=== PATIENT | female | born 1985 | race Caucasian/White ===

== ENCOUNTER → 2017-11-12 | Outpatient (CLI) | payer OTHER ==
[~2017-11-12] MED LIST: FLUT0.15; MTR600X PO; OXYC5TAB PO; PRENTAB26 PO
--- NOTE | 2017-11-12 09:26 | DIAGNOSTIC IMAGING REPORT ---
CHEST 2 VIEWS ROUTINE CLINICAL HISTORY: 32 years-old Female presenting with COUGH, FEVER. TECHNIQUE: PA and lateral views of the chest were obtained. COMPARISON: None. FINDINGS: Cardiomediastinal silhouette normal. Left retrocardiac paraspinal opacity in the left lower lobe. No other focal infiltrate. No pleural effusion or pneumothorax. Osseous structures normal. Upper abdomen normal. IMPRESSION: 1. Findings consistent with left lower lobe pneumonia. Electronically signed by: Allan Miller M.D. 11/12/2017 9:25 AM Dictated Date/Time: 11/12/2017 9:23 AM
== END | disposition home or self-care (01) ==
LOC: C.RAD1850 09:12
PROVIDERS: ATTEND Family Medicine
DX: R05 Cough (principal); R50.9 Fever, unspecified

== ENCOUNTER 2021-05-30 05:34 | Inpatient (IN) ==
--- NOTE | 2021-05-12 09:20 | Anesthesiology Consultation ---
Date of Service May 12, 2021 Assessment & Plan (1) Encounter for pre-operative examination: Chart Review Chart Review: entry level electrician initiated -Will leave to anesthesiologist and/or OB discretion if BSG needed DOS (insulin required gestational DM) Per nursing assessment 05/12/2021, patient denies any recent travel. No known Covid infection in the past 90 days. Patient is vaccinated for Covid. No known Covid positive contacts or Covid related symptoms. Preop Covid testing scheduled 05/25/21= will await results History Surgery Operation Date: 05/30/21 07:30 Proposed Procedures p Section in - Vivian EnriqueDO Height/Weight Height: 5 ft 6 in Weight: 88.451 kg Allergies Allergy/AdvReac Type Severity Reaction Status Date / Time wheat Allergy Intermediate Diarrhea Verified 05/12/21 08:01 hazelnut Allergy Unknown allergy Verified 05/12/21 08:01 testing * diarrhea No Known Drug Allergies Allergy Verified 05/12/21 08:01 seasonal allergies Allergy Intermediate Sneezing Uncoded 05/12/21 08:01 Medications Home Medications Medication Instructions Recorded Confirmed Last Taken prenat.vits,roe,lhu-bxmh-ahhki 1 tab PO DAILY 10/18/20 05/12/21 Unknown acetone (urine) test (Ketone Urine #50 ea 11/08/20 05/11/21 Unknown Test) blood sugar diagnostic (Accu-Chek #150 ea 11/08/20 05/11/21 Unknown Guide test strips) blood-glucose meter (Accu-Chek #1 ea 11/08/20 05/11/21 Unknown Guide Glucose Meter) lancets (Accu-Chek Fastclix Lancet #102 ea 11/08/20 05/11/21 Unknown Drum) pen needle, diabetic 32 gauge x #50 ea 11/26/20 05/11/21 Unknown 5/32" (BD Nadiya 2nd Gen Pen Needle) aspirin 81 mg tablet 81 mg PO HS 05/12/21 05/12/21 Unknown insulin NPH isoph U-100 human 100 39 unit SUBCUT HS 05/12/21 05/12/21 Unknown unit/mL (3 mL) subcutaneous pen (Novolin N Flexpen) Past Medical History Medical History Gestational diabetes mellitus (GDM) requiring insulin Past Family History Family History Grandfather (Maternal) Diabetes Brother Allergic rhinitis Mother Eczema Sister Eczema Father Factor 5 Leiden mutation, heterozygous biological father Denies family history of Ovarian cancer Prostate cancer Myocardial infarction Breast cancer Lung cancer Colorectal cancer Stroke Past Surgical History Surgical History S/P section x1 S/P tooth extraction Social History Smoking Status: Never smoker Do You Dip or Chew Tobacco: No Hx Alcohol Use: No Alcohol type: hard liquor Hx Substance Use: No substance use type: does not use
--- NOTE | 2021-05-27 08:28 | History & Physical Report ---
Date of Service May 27, 2021 Assessment & Plan (1) Previous delivery affecting , antepartum: Plan: Plan for repeat section. Consent reviewed in office with patient, [id number]. Questions answered. History of Present Illness Chief Complaint: repeat section Primary Care Provider: Kervin Haley, 36yo with EDC 06/06/21. Scheduled for repeat section. complicated by: Need for Rhogam d/t Rh negative mother Rhogam given 03/15/21 OC Previous --Given consent to review, will likely plan repeat c/s C/S SCHEDULED FOR 05/[address] MATAMOROS NEEDS COVID TEST ON 05/25-ORDERED AMA --Nsts qwk @ 36wks GDM - on insulin *Begin monthly AC Us's @24wks *growth monthly at 28wk *NSTs weekly @ 32, twice weekly @ 36 *deliver by EDC GBS positive Had flu shot 08/2020 Allergies Allergy/AdvReac Type Severity Reaction Status Date / Time wheat Allergy Intermediate Diarrhea Verified 05/25/21 09:14 hazelnut Allergy Unknown allergy Verified 05/25/21 09:14 testing * diarrhea No Known Drug Allergies Allergy Verified 05/25/21 09:14 seasonal allergies Allergy Intermediate Sneezing Uncoded 05/17/21 09:32 Home Medications Medication Instructions Recorded Confirmed Type prenat.vits,roe,ato-urjp-zfoai 1 tab PO DAILY 10/18/20 05/25/21 History acetone (urine) test (Ketone Urine #50 ea 11/08/20 05/25/21 Rx Test) blood sugar diagnostic (Accu-Chek #150 ea 11/08/20 05/25/21 Rx Guide test strips) blood-glucose meter (Accu-Chek #1 ea 11/08/20 05/25/21 Rx Guide Glucose Meter) lancets (Accu-Chek Fastclix Lancet #102 ea 11/08/20 05/25/21 Rx Drum) pen needle, diabetic 32 gauge x #50 ea 11/26/20 05/25/21 Rx 5/32" (BD Nadiya 2nd Gen Pen Needle) aspirin 81 mg tablet 81 mg PO HS 05/12/21 05/25/21 History insulin NPH isoph U-100 human 100 39 unit SUBCUT HS 05/12/21 05/25/21 History unit/mL (3 mL) subcutaneous pen (Novolin N Flexpen) Patient History Medical History Gestational diabetes mellitus (GDM) requiring insulin Surgical History S/P section x1 S/P tooth extraction Family History Grandfather (Maternal) Diabetes Brother Allergic rhinitis Mother Eczema Sister Eczema Father Factor 5 Leiden mutation, heterozygous biological father Denies family history of Ovarian cancer Prostate cancer Myocardial infarction Breast cancer Lung cancer Colorectal cancer Stroke Social History Smoking Status: Never smoker Second Hand Exposure: No; Hx Alcohol Use: No Hx Substance Use: No Preferred Language: Slovak Communication Ability: Effective Visual Impairment: Limited Hearing Ability: Normal Professor Of Education Required: No Beliefs That Will Affect Care: None marital status: marital status details: Theodore Hunt (36) [phone] Current Living Situation: Spouse and Family Current Living Situation Comment: lives with spouse, daughter, cats-spouse changing litter current occupational status: employed current occupation: [employer] How many Children do You have: 1 Feels Safe at Home: Yes Childhood Exposure to Second-Hand Smoke: Yes (mother) caffeine: Yes Dental Care, Regularly: Yes Physical Activity Frequency: 3-4 Times per Week Physical Activity Frequency Comment: run Seatbelt Use: always Sunscreen Use: Yes Do you think of yourself as: straight/heterosexual Assistive Devices: Contacts and Glasses Review of Systems All systems reviewed & are unremarkable except as noted in HPI & below Physical Exam Constitutional: WD/WN, vitals as above Respiratory: normal respiratory effort, lungs clear to auscultation no respiratory distress Cardiovascular: Rate/Rhythm: regular rate and regular rhythm Gastrointestinal (Abdomen): Inspection/Auscultation: abdomen normal to inspection Percussion/Palpation: abdomen soft; abdomen nontender Gravid. No s/s chorio or abruption. Skin: no rashes, warm and dry Psychiatric: A+Ox3, euthymic affect Coding Level of Care Code None Diagnoses Previous delivery affecting , antepartum O34.219
[2021-05-30] MEDS ORDERED: CITRIC ACID/SODIUM CITRATE 15 ML UDC PO SCH (06:00)
[2021-05-30] MEDS ORDERED: ceFAZolin 2,000 MG in SYRINGE 0 ML IV SCH (06:00)
[2021-05-30] MEDS ORDERED: LACTATED RINGER'S 1,000 ML IV SCH ×2 (06:00→10:39)
[2021-05-30 06:40] LABS: Basophils # (auto) 0.01 K/uL (0-0.2); Basophils % (auto) 0.1 %; Eosinophils # (auto) 0.05 K/uL (0-0.5); Eosinophils % (auto) 0.7 %; Hematocrit (blood only) 32.4 % (37-47); Hemoglobin 11.1 g/dL (12.0-16.0); Immature Granulocytes # (auto) 0.01 K/uL (0.00-0.02); Immature Granulocytes % (auto) 0.1 %; Lymphocytes # (auto) 1.41 K/uL (1.2-3.4); Mean Corpuscular Hemoglobin 31.3 pg (25-34); Mean Corpuscular Volume 91.3 fL (80-100); Monocytes # (auto) 0.47 K/uL (0.11-0.59); Monocytes % (auto) 6.3 %; Neutrophils # (auto) 5.49 K/uL (1.4-6.5); Neutrophils % (auto) 73.8 %; Platelet Count 171 K/uL (130-400); RDW Standard Deviation 43.7 fL (36.4-46.3); Red Blood Count 3.55 M/uL (4.2-5.4); White Blood Count 7.44 K/uL (4.8-10.8)
[2021-05-30 06:47] LABS: Mean Corpuscular Hgb Conc 34.3 g/dL (32-36)
--- NOTE | 2021-05-30 07:27 | History & Physical Bridge Note ---
Date of Service May 30, 2021 History & Physical Bridge Note I have examined the patient, reviewed the History & Physical and in the interval since the performance of the History & Physical I have noted the following changes of clinical significance: no changes noted
[2021-05-30] MEDS ORDERED: MoRPHine SULFATE PF 1 MG/ML 10 ML AMP/VIAL ONE (07:49)
[2021-05-30] MEDS ORDERED: NALOXONE HCL 1 MG in SODIUM CHLORIDE 0.9% 1000ML 1,000 ML IV PRN (08:05)
[2021-05-30] MEDS ORDERED: MoRPHine SULFATE PF 1 MG/ML 10 ML AMP/VIAL INT SPINAL ONE (08:05)
[2021-05-30] MEDS ORDERED: ONDANSETRON INJ 2 MG/ML 2 ML VIAL IV PRN ×2 (08:05→10:39)
[2021-05-30] MEDS ORDERED: PROMETHAZINE HCL 12.5 MG in SODIUM CHLORIDE 0.9% 50 ML IV PRN (08:05)
[2021-05-30] MEDS ORDERED: NALBUPHINE HCL INJ 10 MG/ML AMP IV PRN (08:05)
[2021-05-30] MEDS ORDERED: MoRPHine SULFATE 2 MG/ML CARP IV PRN (08:05)
[2021-05-30] MEDS ORDERED: diphenhydrAMINE 50 MG/ML VIAL IV PRN (08:05)
[2021-05-30] MEDS ORDERED: NALOXONE HCL 0.4 MG/1 ML VIAL/CARP IV PRN (08:05)
[2021-05-30] MEDS ORDERED: ePHEDrine sulfate 50 MG/ML AMP IV PRN (08:05)
[2021-05-30] MEDS ORDERED: LACTATED RINGER'S 500 ML IV PRN (08:05)
[2021-05-30] MEDS ORDERED: NALOXONE HCL 0.08 MG in SYRINGE 1.8 ML IV PRN (08:05)
[2021-05-30] MEDS ORDERED: METOCLOPRAMIDE HCL 10 MG in SODIUM CHLORIDE 0.9% 50 ML IV PRN (08:05)
[2021-05-30] MEDS ORDERED: MEPERIDINE HCL 25 MG/ML CARP/VIAL IV PRN (08:05)
[2021-05-30] MEDS ORDERED: HYDROmorphone INJ 0.5 MG/0.5 ML SYR IV PRN (08:05)
[2021-05-30] MEDS ORDERED: NO NARCOTICS OR SEDATIVES SCH (08:15)
[2021-05-30] MEDS ORDERED: DC INTRASPINAL MORPHINE SCH (08:15)
[2021-05-30] MEDS ORDERED: SODIUM CHLORIDE 0.9% 1000ML 1,000 ML IV SCH (08:15)
[2021-05-30] MEDS ORDERED: OXYTOCIN 10 UNITS/ML VIAL ONE (08:56)
[2021-05-30] MEDS ORDERED: PHENYLEPHRINE 100MCG/ML 5ML SYR ONE (08:56)
[2021-05-30] MEDS ORDERED: ePHEDrine sulfate 50 MG/ML SYR ONE (08:56)
--- NOTE | 2021-05-30 09:23 | Operative Report ---
PG Post Operative Report Pre & Post Diagnosis Operation Date: 05/30/21 07:30 Pre-Op Diagnosis: 1. History of 2. Desires repeat 3. GDM - A2 Post-Op Diagnosis: Same I identified the patient and participated in the time-out.: Yes Procedure Operation Date: 05/30/21 07:30 Repeat low transverse section Surgeon Vivian Enrique, DO Psychiatric Security Nurse Louise Potter MD Estimated Blood Loss 600 Findings Consistent with Post-Op Diagnosis Viable male . Apgars 8/9, weight - please see nursery notes. Normal appearing uterus, tubes, ovaries. Specimens placenta, cord blood, cord gas Drains del angel clear yellow Anesthesia Type Spinal Complications none Disposition Accompanied Patient To Recovery: No Indications 36yo @ 39 0/7, h/o section x 1, desires repeat. Description of Procedure The patient was seen in her labor and delivery room, risks benefits and alternatives to surgery were reviewed. Informed consent obtained. Questions were answered. She was taken to the operating room, spinal anesthesia was administered. She was then prepared and draped in the usual sterile fashion in the supine position with a leftward tilt. Timeout was confirmed. A Pfannenstiel skin incision was made with a scalpel, and carried through to the underlying layer of fascia. Fascia was nicked at midline, and this incision was extended bilaterally. The superior aspect of the fascial incision was grasped with Prudence clamps x2, elevated off the underlying rectus abdominis muscles, and dissected sharply and bluntly. In similar fashion, the inferior aspect of the fascial incision was dissected. The rectus abdominis muscles were , and the peritoneum was entered bluntly digitally. This was extended bilaterally. The bladder flap was taken down carefully using Metzenbaum scissors. Using a new scalpel, a low transverse uterine incision was created. Clear amniotic fluid noted. The infant was delivered from a cephalic presentation. The head delivered, followed by shoulders and body. Nuchal cord x 2, easily reduced. Spontaneous cry on the field. The cord was doubly clamped and cut, and the was handed off to the waiting venetian blind assembler. A segment was retained for cord gases. Cord blood was obtained. The placenta was delivered spontaneously intact. The uterus was exteriorized, and cleared of all clots and debris. The hysterotomy incision was reapproximated using 0 Vicryl in a running locked stitch. A second layer of the same suture was used to imbricate the incision. Figure of eight stitches for excellent hemostasis. Posterior uterus was evaluated and normal. The uterus was returned to the abdomen, and gutters were cleared of clots and debris. Excellent hemostasis was observed. The fascial incision was reapproximated using 0 Vicryl in a running stitch. The subcutaneous tissue was irrigated, and reapproximated using 2-0 plain gut in a running stitch. The skin was reapproximated using 4-0 Vicryl in a running subcuticular stitch. Steri-Strips and a pressure bandage were applied. The patient tolerated the procedure well, and will be taken to the recovery area in stable and good condition. I attest to the content of the Intraoperative Record and any orders documented therein. Any exceptions are noted below.
[2021-05-30 09:31] LABS: Base Excess Cord Arterial Bld -0.3 mEq/L (-9-1.8); CO2 Cord Arterial Blood 59 mmHg (39.1-73.5); HCO3 Cord Arterial Blood 28 mmol/L (19.7-28.5); PO2 Cord Arterial Blood 14 mmHg (4.1-31.7); pH Cord Arterial Blood 7.29 (7.1-7.38)
[2021-05-30 09:37] LABS: Base Excess Cord Venous Blood 0.7 mEq/L (-7.7-1.9); Cord Venous Blood HCO3 27 mmol/L (18.4-26.8); Cord Venous Blood PCO2 48 mmHg (30.4-57.2); Cord Venous Blood PO2 25 mmHg (14.1-43.3); Cord Venous Blood pH 7.37 (7.20-7.44)
[2021-05-30 09:47] LABS: Oxygen Sat Cord Arterial Blood < 60.0 % (<60)
[2021-05-30 09:48] LABS: O2 Saturation Cord Venous Bld < 60.0 % (<68)
[2021-05-30] MEDS ORDERED: SUPERCREAM 0.870% 15 GM JAR EXT PRN (10:39)
[2021-05-30] MEDS ORDERED: IBUPROFEN 600 MG TAB PO PRN (10:39)
[2021-05-30] MEDS ORDERED: SENNA 8.6 MG TAB PO PRN (10:39)
[2021-05-30] MEDS ORDERED: HYDROCORTISONE ACETATE 25 MG SUPP PR PRN (10:39)
[2021-05-30] MEDS ORDERED: BENZOCAINE 20% AER SPR 82.5 GM CAN EXT PRN (10:39)
[2021-05-30] MEDS ORDERED: DIPHTHERIA/TETANUS/PERTUSSIS 0.5 ML SYR/VIAL IM ONE (10:39)
[2021-05-30] MEDS ORDERED: MAGNESIUM HYDROXIDE SUSP 30 ML UDC PO PRN (10:39)
[2021-05-30] MEDS: KETOROLAC 30 MG/ML VIAL IV PRN ×2 (10:50→19:38)
--- NOTE | 2021-05-30 11:26 | Anesthesiology Progress Note ---
Date of Service May 30, 2021 Anesthesia Post Procedure Vital Signs Vital Signs: Temp Pulse Resp BP Pulse Ox 05/30/21 11:20 79 99 05/30/21 11:15 82 148/85 H 98 05/30/21 11:10 83 99 05/30/21 11:06 85 91 05/30/21 11:05 76 143/70 H 99 05/30/21 11:01 78 94 05/30/21 11:00 81 97 05/30/21 10:55 85 142/58 H 99 05/30/21 10:50 76 99 05/30/21 10:46 78 145/64 H 05/30/21 10:45 78 99 05/30/21 10:40 80 98 05/30/21 10:35 82 135/84 99 05/30/21 10:30 77 99 05/30/21 10:25 36.8 C 76 18 137/88 100 05/30/21 10:20 81 99 05/30/21 10:15 72 18 131/84 100 05/30/21 10:10 83 100 05/30/21 10:06 77 128/72 05/30/21 10:05 77 18 100 05/30/21 10:00 78 99 05/30/21 09:56 74 152/81 H 05/30/21 09:55 76 18 99 05/30/21 09:50 81 98 05/30/21 09:45 89 18 134/80 98 05/30/21 09:40 86 98 05/30/21 09:36 81 133/78 05/30/21 09:35 85 18 98 05/30/21 09:30 86 99 05/30/21 09:25 36.5 C 83 18 135/73 98 05/30/21 06:59 36.7 C 77 18 132/86 05/30/21 05:53 36.6 C 18 05/30/21 05:45 91 H 133/82 Pain Intensity Lower Abdomen: Pain Intensity: 5 Transfer of Care Handoff Completed per policy Notes Mental Status: alert / awake / arousable and participated in evaluation Patient Amnestic to Procedure: Yes Nausea / Vomiting: adequately controlled Pain: adequately controlled Airway Patency, RR, SpO2: stable & adequate BP & HR: stable & adequate Hydration State: stable & adequate Neuraxial Anesthesia: was administered and sensory block is resolving Anesthetic Complications: no major complications apparent
[2021-05-30] MEDS: OXYTOCIN 30 UNITS in LACTATED RINGER'S 1,000 ML IV SCH ×2 (11:43→20:10)
[2021-05-30] MEDS: SIMETHICONE 80 MG CHEW PO SCH ×3 (12:52→21:02)
[2021-05-30] MEDS: DOCUSATE SODIUM 100 MG CAP PO SCH (21:02)
[2021-05-31] MEDS ORDERED: KETOROLAC 30 MG/ML VIAL IV PRN (02:07)
[2021-05-31] MEDS ORDERED: diphenhydrAMINE 50 MG/ML VIAL IV PRN (02:07)
[2021-05-31] MEDS ORDERED: PROMETHAZINE HCL 25 MG in SODIUM CHLORIDE 0.9% 50 ML IV PRN (02:07)
[2021-05-31] MEDS ORDERED: diphenhydrAMINE Capsule 25 MG CAP PO PRN (02:07)
[2021-05-31] MEDS: IBUPROFEN 600 MG TAB PO PRN ×5 (04:48→23:50)
[2021-05-31] MEDS: oxyCODONE/ACETAMINOPHEN 5mg/325mg TAB PO PRN ×5 (04:48→23:50)
--- NOTE | 2021-05-31 06:28 | Obstetrical Progress Note ---
Date of Service <Tremayne Man DO - Last Filed: 05/31/21 08:00> May 31, 2021 Assessment & Plan <Tremayne Man DO - Last Filed: 05/31/21 08:00> (1) Encounter for care and examination after delivery: Stable, improving - hgb 11.1 - Vitals WNL. - Encourage Ambulation, Monitor and control pain with motrin, tylenol, percocet, on regular diet, monitor lochia. - A- -> Rh-, GBS-, RI (Rhogam received 04/04/2021) - Bottle feeding <Vivian Enrique, - Last Filed: 05/31/21 08:24> (1) Encounter for care and examination after delivery: Subjective <Tremayne Man DO - Last Filed: 05/31/21 08:00> Ambulation: ambulating normally (with help getting up) Voiding: no voiding problems Passing Gas:: Yes Diet Tolerance:: regular diet Lochia:: Small Feeding Type:: breast feeding Current Pain Level(1-10): 2 Review of Systems Denies fever, chills, sweats Denies shortness of breath, difficulty breathing, chest pain, palpitations, chest pressure. Denies breast pain. Denies dysuria. Denies headache or changes in vision Physical Exam <Tremayne Man DO - Last Filed: 05/31/21 08:00> General: Alert, oriented. No acute distress. Cardiac: Regular rate and rhythm, no murmurs/rubs/gallops. Respiratory: Clear to auscultation bilaterally a/p, no wheezes/rales/rhonchi. No increased work of breathing. Symmetrical chest rise. No respiratory distress. Abdomen: Soft, nontender, nondistended. Bowel sounds present. Uterus: Uterine fundus firm, palpable 2 cm below umbilicus. Surgical bandage over scar looking clean. Lower Extremities: No lower extremity edema or swelling. No deep calf pain. Skyler's negative bilaterally Results & Data ([facility]) <Tremayne Man DO - Last Filed: 05/31/21 08:00> Vital Signs (Past 12 Hours) Vital Signs Temp Pulse Resp BP Pulse Ox 05/31/21 03:31 36.7 C 71 16 138/90 99 05/31/21 02:00 18 99 05/31/21 01:00 16 96 05/31/21 00:00 16 96 05/30/21 23:00 16 98 05/30/21 22:55 36.7 C 77 16 116/76 97 05/30/21 22:20 16 97 05/30/21 21:49 16 97 05/30/21 20:20 16 98 05/30/21 20:16 36.8 C 73 18 141/88 H 98 05/30/21 18:45 16 98 <Vivian Enrique, - Last Filed: 05/31/21 08:24> Co-Signing Physician Notes Resident Physician Supervision Note: I was present with Dr. Man during the history and exam. I discussed the case with the resident and agree with the findings and plan as documented in the note. Any exceptions or clarifications are listed here: POD1 doing well. Ambulate, continue PO fluids and full diet. Documented By: Vivian Enrique DO Resident Activity Tracking <Tremayne Man DO - Last Filed: 05/31/21 08:00> Resident Involvement: Resident Care Provided Care Provided: OB Delivery
[2021-05-31 07:43] LABS: Basophils # (auto) 0.01 K/uL (0-0.2); Basophils % (auto) 0.1 %; Eosinophils # (auto) 0.05 K/uL (0-0.5); Eosinophils % (auto) 0.5 %; Hematocrit (blood only) 30.1 % (37-47); Hemoglobin 10.1 g/dL (12.0-16.0); Immature Granulocytes # (auto) 0.03 K/uL (0.00-0.02); Immature Granulocytes % (auto) 0.3 %; Lymphocytes # (auto) 1.09 K/uL (1.2-3.4); Lymphocytes % (auto) 10.9 %; Mean Corpuscular Hemoglobin 30.9 pg (25-34); Mean Corpuscular Hgb Conc 33.6 g/dL (32-36); Mean Platelet Volume 10.3 fL (7.4-10.4); Monocytes # (auto) 0.59 K/uL (0.11-0.59); Monocytes % (auto) 5.9 %; Neutrophils # (auto) 8.26 K/uL (1.4-6.5); Neutrophils % (auto) 82.3 %; Platelet Count 182 K/uL (130-400); RDW Coefficient of Variation 13.2 % (11.5-14.5); RDW Standard Deviation 44.6 fL (36.4-46.3); Red Blood Count 3.27 M/uL (4.2-5.4); White Blood Count 10.03 K/uL (4.8-10.8)
[2021-05-31] MEDS: SIMETHICONE 80 MG CHEW PO SCH ×4 (08:30→20:50)
[2021-05-31] MEDS: DOCUSATE SODIUM 100 MG CAP PO SCH ×2 (08:30→20:50)
[2021-05-31] MEDS: FERROUS SULFATE 325 MG TAB PO SCH (08:30)
[2021-05-31] MEDS: PRENATAL VITAMIN 1 TAB PO SCH (08:30)
[2021-05-31] MEDS ORDERED: bisacodyL 5 MG TABEC PO SCH (20:00)
[2021-06-01] MEDS: oxyCODONE/ACETAMINOPHEN 5mg/325mg TAB PO PRN ×2 (04:24→08:49)
[2021-06-01] MEDS: IBUPROFEN 600 MG TAB PO PRN ×2 (04:25→08:50)
--- NOTE | 2021-06-01 05:12 | Obstetrical Progress Note ---
Date of Service <Tremayne Man DO - Last Filed: 06/01/21 07:09> June 01, 2021 Assessment & Plan <Tremayne Man DO - Last Filed: 06/01/21 07:09> (1) Encounter for care and examination after delivery: Stable, improving - hgb 10.1 - Encourage Ambulation, Monitor and control pain with motrin, tylenol, percocet, on regular diet, monitor lochia. - A- -> Rh-, GBS-, RI (Rhogam received 04/04/2021) - Bottle feeding - BP 143/79, otherwise vitals WNL. Told patient we will get urinalysis and labs to check her kidney function due to the high BPs. Told patient if labs were normal we could consider discharge. - Discussed discharge with the patient. <Deepa Gordon MD - Last Filed: 06/01/21 07:28> (1) Encounter for care and examination after delivery: Subjective <Tremayne Man DO - Last Filed: 06/01/21 07:09> Ambulation: ambulating normally Voiding: no voiding problems Passing Gas:: Yes Diet Tolerance:: regular diet Lochia:: Small Feeding Type:: breast feeding Current Pain Level(1-10): 2 Review of Systems Slight soreness with but better with cream. Denies fever, chills, sweats Denies shortness of breath, difficulty breathing, chest pain, palpitations, chest pressure. Denies breast pain. Denies dysuria. Denies headache or changes in vision Physical Exam <Tremayne Man DO - Last Filed: 06/01/21 07:09> General: Alert, oriented. No acute distress. Cardiac: Regular rate and rhythm, no murmurs/rubs/gallops. Respiratory: Clear to auscultation bilaterally a/p, no wheezes/rales/rhonchi. No increased work of breathing. Symmetrical chest rise. No respiratory distress. Abdomen: Soft, nontender, nondistended. Bowel sounds present. Uterus: Uterine fundus firm, palpable 2 cm below umbilicus. Surgical scar clean and healing well. Lower Extremities: No lower extremity edema or swelling. No deep calf pain. Skyler's negative bilaterally Results & Data ([facility]) <Tremayne Man DO - Last Filed: 06/01/21 07:09> Vital Signs (Past 12 Hours) Vital Signs Temp Pulse Resp BP Pulse Ox 05/31/21 23:30 36.9 C 70 16 143/79 H 98 05/31/21 20:00 36.6 C 84 16 150/80 H <Deepa Gordon MD - Last Filed: 06/01/21 07:28> Co-Signing Physician Notes Resident Physician Supervision Note: I interviewed and examined the patient. Discussed with Dr. Man and agree with findings and plan as documented in the note. Any exceptions or clarifications are listed here: POD2 s/p RLTCS. Denies BAILEY, vision change, CP, SOB, RUQ/epigastric pain. BPs have been mild range intermittently since delivery and more persistently over last 24 hrs without notification. Exam benign and wnl, fundus firm below umbilicus, incision c/d/i. Meets criteria for pp gHTN as had not had issues prior to delivery. Will get cbc, cmp - if wnl, I think ok to d/c with bp check sunday Documented By: Deepa Gordon MD Resident Activity Tracking <Tremayne Man DO - Last Filed: 06/01/21 07:09> Resident Involvement: Resident Care Provided Care Provided: OB Delivery
[2021-06-01 06:28] LABS: Hematocrit (blood only) 29.3 % (37-47); Hemoglobin 9.7 g/dL (12.0-16.0)
[2021-06-01 07:08] LABS: Hemoglobin 9.6 g/dL (12.0-16.0); Mean Corpuscular Hemoglobin 31.1 pg (25-34); Mean Corpuscular Hgb Conc 33.1 g/dL (32-36); Mean Corpuscular Volume 93.9 fL (80-100); Mean Platelet Volume 10.1 fL (7.4-10.4); Platelet Count 178 K/uL (130-400); RDW Coefficient of Variation 13.3 % (11.5-14.5); RDW Standard Deviation 45.7 fL (36.4-46.3); Red Blood Count 3.09 M/uL (4.2-5.4); White Blood Count 6.83 K/uL (4.8-10.8)
[2021-06-01 07:27] LABS: Albumin Level 2.2 gm/dl (3.4-5.0); BUN Creatinine Ratio 12.4 (10-20); Calcium 8.3 mg/dl (8.5-10.1); Creatinine Clr Calc Pharmacy 127.9 ml/min; Est GFR (African American) 129.5 ml/min; Est GFR (Non-African American) 111.7 ml/min; Potassium 3.7 mmol/L (3.5-5.1)
[2021-06-01 07:30] LABS: Albumin Globulin Ratio 0.8 (0.9-2); Bilirubin,Total 0.2 mg/dl (0.2-1); Globulin 2.9 gm/dl (2.5-4.0); Total Protein 5.1 gm/dl (6.4-8.2)
[2021-06-01] MEDS: DOCUSATE SODIUM 100 MG CAP PO SCH (08:43)
[2021-06-01] MEDS: FERROUS SULFATE 325 MG TAB PO SCH (08:43)
[2021-06-01] MEDS: PRENATAL VITAMIN 1 TAB PO SCH (08:43)
[2021-06-01] MEDS: SIMETHICONE 80 MG CHEW PO SCH (08:43)
[2021-06-01] MEDS ORDERED: bisacodyL 10 MG SUPP PR PRN (09:17)
--- NOTE | 2021-06-05 21:36 | Discharge Summary ---
Date of Service June 05, 2021 Admission HPI Per Admitting Provider 36yo with EDC 06/06/21. Scheduled for repeat section. complicated by: Need for Rhogam d/t Rh negative mother Rhogam given 03/15/21 OC Previous --Given consent to review, will likely plan repeat c/s C/S SCHEDULED FOR 05/[address] ENRIQUE NEEDS COVID TEST ON 05/25-ORDERED AMA --Nsts qwk @ 36wks GDM - on insulin *Begin monthly AC Us's @24wks *growth monthly at 28wk *NSTs weekly @ 32, twice weekly @ 36 *deliver by EDC GBS positive Had flu shot 08/2020 Admission Exam (Per Admitting) Constitutional WD/WN, vitals as above Respiratory normal respiratory effort, lungs clear to auscultation no respiratory distress Cardiovascular Rate/Rhythm: regular rate and regular rhythm Gastrointestinal (Abdomen) Inspection/Auscultation: abdomen normal to inspection Percussion/Palpation: abdomen soft; abdomen nontender Skin no rashes, warm and dry Psychiatric A+Ox3, euthymic affect Discharge Data Procedures Performed Operation Date: 05/30/21 07:30 Actual Procedures p Section in LD(Bilateral) - Vivian Enrique, Hospital Course (1) Encounter for care and examination after delivery: Stable, improving - hgb 10.1 - Encourage Ambulation, Monitor and control pain with motrin, tylenol, percocet, on regular diet, monitor lochia. - A- -> Rh-, GBS-, RI (Rhogam received 04/04/2021) - Bottle feeding - BP 143/79, otherwise vitals WNL. Told patient we will get urinalysis and labs to check her kidney function due to the high BPs. Told patient if labs were normal we could consider discharge. - Discussed discharge with the patient. Patient scheduled for repeat section. Routine recovery, did have mild range gHTN BPs. Followup in office within 1 week after discharge. DC home POD2. Coding Level of Care Code None Diagnoses Encounter for care and examination after delivery Z39.2
== END 2021-06-01 12:55 | disposition home or self-care (01) | DRG 788 ==
LOC: 4S1 05:34 → EDSTATUS 07:30 → 4S2 11:57